=== PATIENT | female | born 1950 | race Caucasian/White ===

== ENCOUNTER 2019-04-28 09:15 | Day surgery (SDC) | payer OTHER ==
[~2019-04-28 09:15] MED LIST: BACLOFEN10 MG PO; CLONAZEPAM1 MG PO; COZAAR50 MG PO; METOCLOPRAMIDE H5 MG PO; PRILOSEC40 MG PO
== END 2019-04-28 16:35 | disposition home or self-care (01) ==
LOC: AMB-ENDOS 09:15
DX: D12.5 Benign neoplasm of sigmoid colon (principal); K57.30 Diverticulosis of large intestine without perforation or abscess without bleeding

== ENCOUNTER 2019-08-24 05:04 | Day surgery (SDC) | payer OTHER ==
[~2019-08-24 05:04] MED LIST changes: +DOLOGESIC 500-1 EACH PO; +LOSARTAN-HCTZ1 EAC1 PO
[2019-08-24] MEDS ORDERED: PERCOCET 5-3251 EACH PO (10:03)
[2019-08-24] MEDS ORDERED: RECTICARE30 GM TOP (10:04)
== END 2019-08-24 16:05 | disposition home or self-care (01) ==
LOC: CIR.AMB 05:04
DX: K64.8 Other hemorrhoids (principal); K64.4 Residual hemorrhoidal skin tags